=== PATIENT | male | born 1990 | race Caucasian/White ===

== ENCOUNTER 2018-12-31 21:12 | Emergency (ER) | payer OTHER ==
[2018-12-31 21:19] VITALS: BP 158/95; PULSE 83; TEMP 98.2; BMI 22.1
--- NOTE | 2018-12-31 21:19 | PDOC ---
Rapid Medical Evaluation Chief Complaint: Chest Pain Time Seen by Provider: 12/31/18 21:14 Medical Evaluation: 12/31/18 21:15 28 year old male c/o left sided chest pain. pain is worse with breathing x 3 days. denies recent travel, prolonged sitting Discharge Disposition - Diagnosis Chest pain Qualifiers: Chest pain type: chest pain on breathing Qualified Code(s): R07.1 - Chest pain on breathing; R07.81 - Pleurodynia - Referrals - Patient Instructions - Post Discharge Activity
[2018-12-31 21:43] LABS: BASO % 0.4 % (0-2.0); EOS % 0.4 % (0-4.5); HEMATOCRIT 43.6 % (35.4-49); HEMOGLOBIN 14.3 GM/dL (11.7-16.9); LYMPH % 22.4 % (8-40); MCH 27.8 pg (25.7-33.7); MCHC 32.9 g/dl (32.0-35.9); MEAN CELL VOLUME 84.4 fl (80-96); MEAN PLT VOLUME 8.5 fl (7.5-11.1); MONO % 6.8 % (3.8-10.2); PLATELET COUNT 168 K/MM3 (134-434); RBC 5.17 M/mm3 (4.00-5.60); RDW 13.4 % (11.9-15.9); WHITE BLOOD COUNT 6.2 K/mm3 (4.0-10.0)
[2018-12-31 22:05] LABS: INR 1.05 (0.83-1.09); PROTHROMBIN TIME (PATIENT) 12.4 SEC (9.7-13.0)
[2018-12-31 22:12] LABS: ALBUMIN 4.9 g/dl (3.4-5.0); ALK PHOS 66 U/L (45-117); ANION GAP 7 MMOL/L (8-16); BILIRUBIN,TOTAL 0.5 mg/dL (0.2-1); BLOOD UREA NITROGEN 14.6 mg/dL (7-18); CALCIUM 9.2 mg/dL (8.5-10.1); CHLORIDE 103 mmol/L (98-107); CO2 28 mmol/L (21-32); CREATININE 1.1 mg/dL (0.55-1.3); GLUCOSE,RANDOM 105 mg/dL (74-106); MAGNESIUM 2.4 mg/dL (1.8-2.4); SGOT/AST 18 U/L (15-37); SGPT/ALT 16 U/L (13-61); SODIUM 139 mmol/L (136-145); TOT PROT 7.3 g/dl (6.4-8.2)
--- NOTE | 2018-12-31 22:14 | PDOC ---
History of Present Illness - General Chief Complaint: Chest Pain Stated Complaint: CHEST PAIN Time Seen by Provider: 12/31/18 21:14 History Source: Patient Exam Limitations: No Limitations - History of Present Illness Initial Comments: 12/31/18 22:11 HISTORY OF PRESENT ILLNESS: This is a 28-year-old male past medical history of splenic artery rupture status post embolization of presents emergency department for evaluation of left-sided chest pain over the past 3 days. 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 Patient reports been taking Motrin which has provided adequate relief of pain. Patient denies shortness of breath and reports mild dyspnea on exertion after climbing 5 flights of stairs. Patient denies fevers, chills, cough, recent travel, sick contacts, periods of prolonged immobility. No recent travel or sick contacts. PAST MEDICAL HISTORY: splenic artery rupture status post embolization ' SURGICAL HISTORY: Denies ALLERGIES: No known drug allergies REVIEW OF SYSTEMS General/Constitutional: Denies fever or chills. Denies weakness, weight change. HEENT: Denies change in vision. Denies ear pain or discharge. Denies sore throat. Cardiovascular: see HPI Respiratory: Denies cough, wheezing, or hemoptysis. Gastrointestinal: Denies nausea, vomiting, diarrhea or constipation. Denies rectal bleeding. Genitourinary: Denies dysuria, frequency, or change in urination. Musculoskeletal: Denies joint or muscle swelling or pain. Denies neck or back pain. Skin and breasts: Denies rash or easy bruising. Neurologic: Denies headache, vertigo, loss of consciousness, or loss of sensation. Psychiatric: Denies depression or anxiety. Endocrine: Denies increased thirst. Denies abnormal weight change. Hematologic/Lymphatic: Denies anemia, easy bleeding, or history of blood clots. Allergic/Immunologic: Denies hives or skin allergy. Denies latex allergy. PHYSICAL EXAM General Appearance: Well-appearing, appropriately dressed. No apparent distress , no intoxication. HEENT: EOMI, PERRLA, normal ENT inspection, normal voice, TMs normal, pharynx normal. No conjunctival pallor. No photophobia, scleral icterus. Neck: Supple. Trachea midline. No tenderness, rigidity, carotid bruit, stridor , lymphadenopathy, or thyromegaly. Respiratory/Chest: Lungs CTAB. No shortness of breath, chest tenderness, respiratory distress, accessory muscle use. No crackles, rales, rhonchi, stridor , wheezing, dullness Cardiovascular: RRR. S1, S2. No JVD, murmur, bradycardia, tachycardia. Vascular Pulses: Dorsalis-Pedis (R): 2+, Dorsalis-Pedis (L): 2+ Gastrointestinal/Abdominal: Normal bowel sounds. Abdomen soft, non-distended. No tenderness or rebound tenderness. No organomegaly, pulsatile mass, guarding, hernia, hepatomegaly, splenomegaly. Lymphatic: No adenopathy, tenderness. Musculoskeletal/Extremities: Normal inspection. FROM of all extremities, normal capillary refill. Pelvis Stable. No CVA tenderness. No tenderness to extremities, pedal edema, swelling, erythema or deformity. Integumentary: Appropriate color, dry, warm. 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 Fully oriented, alert. Appropriate mood/affect. Motor strength 5/5. No appreciable EOM palsy, facial droop or sensory deficit. Past History - Past Medical History Allergies/Adverse Reactions: Allergies Allergy/AdvReac Type Severity Reaction Status Date / Time No Known Allergies Allergy Verified 12/31/18 21:15 COPD: No - Immunization History Immunization Up to Date: Yes - Psycho Social/Smoking Cessation Hx Smoking History: Never smoked Hx Alcohol Use: Yes Drug/Substance Use Hx: No *Physical Exam - Vital Signs Last Vital Signs Temp Pulse Resp BP Pulse Ox 98.2 F 83 18 158/95 100 12/31/18 21:15 12/31/18 21:15 12/31/18 21:15 12/31/18 21:15 12/31/18 21:15 Heart Score/ECG Review - History History: Slightly suspicious - Electrocardiogram EKG: Normal - Age Age: </= 45 - Risk Factors Based on the list above the patient has:: No risk factors known - Troponin Troponin: </= normal limit - Score Heart Score - Total: 0 - ECG Intrepretation Rhythm: Regular Rhythm ED Treatment Course - LABORATORY CBC & Chemistry Diagram: 12/31/18 21:30 12/31/18 21:30 - ADDITIONAL ORDERS Additional order review: Laboratory Results 12/31/18 12/31/18 12/31/18 22:00 21:30 21:30 PT with INR 12.40 INR 1.05 D-Dimer 256 Sodium 139 Potassium 4.0 Chloride 103 Carbon Dioxide 28 Anion Gap 7 L BUN 14.6 Creatinine 1.1 Est GFR (CKD-EPI)AfAm 105.32 Est GFR (CKD-EPI)NonAf 90.87 Random Glucose 105 Calcium 9.2 Magnesium 2.4 Total Bilirubin 0.5 AST 18 ALT 16 Alkaline Phosphatase 66 Creatine Kinase 104 Troponin I < 0.02 Total Protein 7.3 Albumin 4.9 12/31/18 21:30 RBC 5.17 MCV 84.4 MCHC 32.9 RDW 13.4 MPV 8.5 Neutrophils % 70.0 Lymphocytes % 22.4 Monocytes % 6.8 Eosinophils % 0.4 Basophils % 0.4 Medical Decision Making - Medical Decision Making 12/31/18 22:13 A/P: 28-year-old male with left-sided chest pain for 3 days Pain occurred after working out at [employer]. Patient as the pain does worsen with deep inspiration. Given patient's age, this is less likely ACS as he has no significant medical history. Cardiac workup including d-dimer per patient request Chest x-ray EKG Reassess 12/31/18 22:42 CBC is unremarkable Coagulation profile is unremarkable Chemistries are unremarkable including troponin less than 0.02. Chest x-rays read by Dr. Montiel: Unremarkable examination without evidence of acute cardiopulmonary disease. Note is made of multiple surgical sutures in the left upper abdomen. EKG sinus rhythm with rate of 68. Normal intervals present. Normal axis. No ischemic changes noted. D-dimer remains pending. Discharge - Discharge Information Problems reviewed: Yes Clinical Impression/Diagnosis: Chest pain Qualifiers: Chest pain type: chest pain on breathing Qualified Code(s): R07.1 - Chest pain on breathing Condition: Stable Disposition: HOME - Admission No - Follow up/Referral - Patient Discharge Instructions Additional Instructions: Your troponin today is less than 0.02. Your d-dimer was negative. Your chest x-ray was normal. Your emergency department visit is incomplete to follow-up with her regular doctor. Return to the emergency department for any new or worsening symptoms. Thank you very much for choosing us to provide your emergent health care needs. - Post Discharge Activity
--- NOTE | 2019-01-01 14:08 | EKG ---
Test Reason : Blood Pressure : / mmHG Vent. Rate : 068 BPM Atrial Rate : 068 BPM P-R Int : 156 ms QRS Dur : 112 ms QT Int : 392 ms P-R-T Axes : 062 054 024 degrees QTc Int : 416 ms NORMAL SINUS RHYTHM INCOMPLETE RIGHT BUNDLE BRANCH BLOCK ABNORMAL ECG NO PREVIOUS ECGS AVAILABLE Confirmed by DAMON MUNOZ MD ([id number]) on 01/01/2019 2:07:46 PM Referred By: Confirmed By:DAMON MUNOZ MD
== END 2018-12-31 23:39 | disposition home or self-care (01) ==
LOC: JER 21:12
DX: R07.1 Chest pain on breathing (principal)
CPT/HCPCS: 36415; 71046-TC-FY; 80053; 82550; 83735; 84484; 85025; 85379; 85610; 93005; 93010; 99283-25